=== PATIENT | male | born 1955 | race Caucasian/White ===

== ENCOUNTER 2018-07-10 07:36 | Outpatient (CLI) | payer OTHER | END 2018-07-10 23:59 | disposition home or self-care (01) | LOC: RAD 07:36 | PROVIDERS: ATTEND Physician Assistant | DX: R13.19 Other dysphagia (principal) | CPT/HCPCS: 74220 ==

== ENCOUNTER 2018-07-25 14:26 | Emergency (ER) | payer OTHER ==
[~2018-07-25] VITALS: Ht 185.4 cm; Wt 75.9 kg
[2018-07-25] MEDS ORDERED: OMEP40CA6 PO (14:43)
--- NOTE | 2018-07-25 15:10 | NUR ---
US AT BEDSIDE
[2018-07-25 15:58] VITALS: BP 135/89
== END 2018-07-25 16:28 | disposition home or self-care (01) ==
LOC: ED 16:05
DX: I80.01 Phlebitis and thrombophlebitis of superficial vessels of right lower extremity (principal)
CPT/HCPCS: 99284